=== PATIENT | female | born 2000 | race Caucasian/White ===

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

== ENCOUNTER 2022-04-08 17:38 | Emergency (ER) | payer MEDICAID ==
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
[2022-04-08 20:05] LABS: Group A Strep NOT DETECTED (NEGATIVE)
[2022-04-08 20:12] VITALS: BP 119/64; PULSE 100
[2022-04-08 20:13] VITALS: O2SAT 99
[2022-04-08 20:17] LABS: INFLUENZA B NEGATIVE (NEGATIVE); RESPIRATORY SYNCTIAL VIRUS NEGATIVE (Negative); SARS-CoV-2 Xpert Express NEGATIVE (NEGATIVE)
[2022-04-08] MEDS ORDERED: Robitussin-Dm Syrup PO ONE (20:44)
[2022-04-08] MEDS ORDERED: Robitussin-Dm Syrup ONE (20:48)
[2022-04-08 20:50] LABS: INFLUENZA A POSITIVE (NEGATIVE)
== END 2022-04-08 21:00 | disposition home or self-care (01) ==
LOC: ED 17:38
DX: O99.512 Diseases of the respiratory system complicating pregnancy, second trimester (principal); Z3A.16 16 weeks gestation of pregnancy; J10.1 Influenza due to other identified influenza virus with other respiratory manifestations; R50.9 Fever, unspecified; R05.1 Acute cough; R51.9 Headache, unspecified; Z72.0 Tobacco use
CPT/HCPCS: 0241U; 87651; 99282; A9270-GY

== ENCOUNTER 2022-08-31 14:57 | Observation (INO) | payer MEDICAID, OTHER ==
[2022-08-31 16:11] LABS: ADD URINE CULTURE? NO (NO); Appearance Clear (Clear); Bacteria None Seen /HPF (None Seen); Bilirubin Negative (Negative); Blood Negative (Negative); Epithelial Cells None Seen /HPF (None Seen); Glucose, Urine Negative (Negative); Hyaline Casts NONE SEEN /LPF (0-2); Ketones Negative (Negative); Leukocyte Esterase Negative (Negative); Nitrite Negative (Negative); Ph 6.5 (4.6-8.0); Protein,Urine Dip Negative (Negative); RBC 0-2 /HPF (0-5); Specific Gravity 1.015 (1.005-1.030); Urobilinogen 0.2 mg/dL (0.2); WBC 0-2 /HPF (0-5)
[2022-08-31 16:14] VITALS: BP 113/72; PULSE 88
[2022-08-31 16:21] LABS: Amphetamine,Urine NEGATIVE (NEGATIVE); Barbiturate,Urine NEGATIVE (NEGATIVE); Benzodiazepine,Urine NEGATIVE (NEGATIVE); Cocaine,Urine NEGATIVE (NEGATIVE); Methadone,Urine NEGATIVE (NEGATIVE); Opiate,Urine NEGATIVE (NEGATIVE); PCP,Urine NEGATIVE (NEGATIVE); THC,Urine NEGATIVE (NEGATIVE)
--- NOTE | 2022-08-31 20:02 | XRAY ---
Indication: Decreased movement. Ultrasound biophysical profile study performed. Comparison: None Single intrauterine currently in cephalic presentation. heart rate 149 BPM. Four-quadrant ARTURO is 11.6 cm. 2 points given for breathing, movements, tone, and amniotic fluid volume. Impression: Total biophysical profile score is 8 out of 8.
== END 2022-08-31 18:05 | disposition home or self-care (01) ==
LOC: OB 14:57
PROVIDERS: ADMIT Obstetrics & Gynecology; ATTEND Obstetrics & Gynecology
DX: Z34.83 Encounter for supervision of other normal pregnancy, third trimester (principal); Z3A.36 36 weeks gestation of pregnancy
CPT/HCPCS: 36415; 76819; 80307; 81001; 84112; G0378

== ENCOUNTER 2022-09-21 07:26 | Inpatient (IN) | payer OTHER ==
[2022-09-21] MEDS ORDERED: TYLENOL EXTRA STRENGTH 500 MG PO PRN (15:00)
[2022-09-21] MEDS ORDERED: Lactated Ringers 1,000 ML IV ONE (15:00)
[2022-09-21] MEDS ORDERED: Zofran 4 MG/2 ML VIAL IV PRN (15:00)
[2022-09-21] MEDS ORDERED: Nubain 10 MG/ML IV PRN ×2 (15:00→21:00)
[2022-09-21] MEDS ORDERED: Lactated Ringers 1,000 ML IV SCH (15:00)
[2022-09-21] MEDS ORDERED: Ephedrine Sulfate 50 MG/ML IV PRN (15:00)
[2022-09-21] MEDS ORDERED: FENTANYL 2 MCG-BUPIV 0.125%-NS 250 ML Epidur 250 ML EPIDURAL SCH (15:00)
[2022-09-21 15:30] LABS: Absolute Neutrophil Ct (ANC) 6.28 x10^3/uL (1.4-6.9); BASOPHIL % 0.2 % (0.0-0.4); Basophil (Absolute #) 0.02 x10^3/uL (0-0.4); Eosinophil % 0.6 % (0.00-5.0); Eosinophil (Absolute #) 0.05 x10^3/uL (0-0.5); Hematocrit 36.9 % (35-47); Hemoglobin 12.1 g/dL (12.0-16.0); IMMATURE GRAN # 0.05 x10^3u/L (0.00-0.03); IMMATURE GRAN % 0.6 % (0.00-0.4); Lymphocyte (Absolute #) 1.57 x10^3/uL (1.0-4.6); Lymphocytes % 18.3 % (24.0-44.0); Mean Cell Volume 91.1 fL (78-100); Mean Corpuscular Hemoglobin 29.9 pg (26-32); Mean Corpuscular Hgb Concent. 32.8 g/dL (32-36); Mean Platelet Volume 12.1 fL (7.5-11.0); Monocyte (Absolute #) 0.62 x10^3/uL (0.0-1.3); Monocytes % 7.2 % (0.0-12.0); Neutrophil % 73.1 % (36.0-66.0); Platelet Count 161 x10^3/uL (150-450); Red Blood Count 4.05 x10^6/uL (4.1-5.4); Red Cell Distribution Width 13.7 % (11.5-14.0); White Blood Count 8.6 x10^3/uL (4.0-10.5)
[2022-09-21 15:47] LABS: Amphetamine,Urine NEGATIVE (NEGATIVE); Barbiturate,Urine NEGATIVE (NEGATIVE); Benzodiazepine,Urine NEGATIVE (NEGATIVE); Cocaine,Urine NEGATIVE (NEGATIVE); Methadone,Urine NEGATIVE (NEGATIVE); Opiate,Urine NEGATIVE (NEGATIVE); PCP,Urine NEGATIVE (NEGATIVE); THC,Urine NEGATIVE (NEGATIVE)
[2022-09-21] MEDS: CYTOTEC PO SCH ×5 (15:55→23:52)
[2022-09-21 16:08] LABS: ABO TYPING O; Antibody Screen NEGATIVE (NEGATIVE); RH TYPING POSITIVE
[2022-09-21] MEDS ORDERED: Ambien 5 MG Tablet PO ONE (22:00)
[2022-09-22] MEDS: Lactated Ringers 1,000 ML IV SCH ×4 (01:22→11:13)
[2022-09-22] MEDS: CYTOTEC PO SCH ×2 (01:53→03:55)
[2022-09-22] MEDS ORDERED: PITOCIN 30 UNITS/ LR 500 ML 30 UNITS/500 ML PLAST..BAG IV SCH ×2 (06:00→08:00)
[2022-09-22] MEDS ORDERED: Sodium Chloride 0.9% 1000 ML 1,000 ML IV ONE (07:00)
[2022-09-22] MEDS ORDERED: XYLOCAINE 1% HCL 20 ML MDV IJ PRN (08:00)
[2022-09-22] MEDS ORDERED: DEXMEDETOMIDINE 80 MCG/20ML-NS IV ONE (08:38)
[2022-09-22] MEDS ORDERED: XYLOCAINE 2%/Epi 1:200000 20ML VIAL MPF ONE (08:38)
[2022-09-22] MEDS ORDERED: FERREX 150 PO SCH (10:00)
[2022-09-22] MEDS ORDERED: CORTISONE 1% CREAM TP PRN (12:00)
[2022-09-22] MEDS ORDERED: LANSINOH 40 GM TOP PRN (12:00)
[2022-09-22] MEDS ORDERED: Dermoplast Spray TP PRN (12:00)
[2022-09-22] MEDS ORDERED: TUCKS TP PRN (12:00)
[2022-09-22] MEDS ORDERED: Mylicon 80MG PO PRN (12:00)
[2022-09-22] MEDS ORDERED: Adacel Vial IM ONE (12:00)
[2022-09-22 12:04] LABS: HBsAg Screen Negative (Negative)
[2022-09-22] MEDS: MOTRIN 400 MG PO PRN (19:05)
[2022-09-22] MEDS: Docusate Sodium 100 MG PO SCH (23:37)
[2022-09-23 05:14] LABS: Absolute Neutrophil Ct (ANC) 10.62 x10^3/uL (1.4-6.9); BASOPHIL % 0.2 % (0.0-0.4); Basophil (Absolute #) 0.03 x10^3/uL (0-0.4); Eosinophil % 0.5 % (0.00-5.0); Eosinophil (Absolute #) 0.07 x10^3/uL (0-0.5); Hematocrit 33.3 % (35-47); Hemoglobin 11.1 g/dL (12.0-16.0); IMMATURE GRAN # 0.07 x10^3u/L (0.00-0.03); IMMATURE GRAN % 0.5 % (0.00-0.4); Lymphocyte (Absolute #) 1.81 x10^3/uL (1.0-4.6); Lymphocytes % 13.5 % (24.0-44.0); Mean Cell Volume 90.2 fL (78-100); Mean Corpuscular Hemoglobin 30.1 pg (26-32); Mean Corpuscular Hgb Concent. 33.3 g/dL (32-36); Mean Platelet Volume 11.9 fL (7.5-11.0); Monocyte (Absolute #) 0.83 x10^3/uL (0.0-1.3); Monocytes % 6.2 % (0.0-12.0); Neutrophil % 79.1 % (36.0-66.0); Platelet Count 134 x10^3/uL (150-450); Red Blood Count 3.69 x10^6/uL (4.1-5.4); Red Cell Distribution Width 13.9 % (11.5-14.0); White Blood Count 13.4 x10^3/uL (4.0-10.5)
[2022-09-23] MEDS: Docusate Sodium 100 MG PO SCH ×2 (07:50→22:20)
--- NOTE | 2022-09-23 09:37 | PCM.NOTE ---
Date and Time: 09/23/22934 Subjective Assessment: ppd 1 sp pt resting in bed and doing well ambulating and tolerating diet. vss afebrile abd; soft uterus; firm lochia; mild a/p sp ppd 1 dc home tomorrow fu office in 3 wks. OBJECTIVE DATA Vital Signs: Vital Signs - 24 hr Temp Pulse Resp BP BP Pulse Ox 09/23/22 07:30 97.8 F 65 20 116/78 100 09/23/22 02:11 96.9 F 68 18 102/57 98 09/22/22 20:00 98.6 F 88 97 H 112/62 100 09/22/22 15:50 99.5 F 75 18 117/62 100 09/22/22 15:00 99.5 F 77 18 130/79 100 09/22/22 14:00 98.5 F 72 20 118/70 100 09/22/22 13:15 97.8 F 70 20 118/70 99 09/22/22 12:45 98.0 F 70 18 116/75 98 09/22/22 12:30 98.5 F 65 18 120/75 98 09/22/22 12:15 98.5 F 75 20 115/76 97 09/22/22 12:00 98.0 F 76 18 114/68 98 09/22/22 11:45 98.0 F 83 18 107/74 98 09/22/22 11:24 90 20 113/73 09/22/22 11:15 68 20 117/72 09/22/22 11:00 76 20 112/62 09/22/22 10:45 75 20 114/56 09/22/22 10:30 97.6 F 81 20 126/62 98 09/22/22 10:15 71 18 113/59 99 09/22/22 10:00 61 18 108/66 96 09/22/22 09:45 64 18 111/59 98 Pain Assessment - Last Documented Pain Intensity [Lower Anterior 3 ] Pain Intensity 3 Pain Scale Used 0-10 Pain Scale Intake and Output: Intake & Output 09/20/22 09/21/22 09/22/22 09/23/22 11:59 11:59 11:59 11:59 Intake Total 5874 500 Output Total 500 Balance 5874 0 Weight 76.657 kg Lab Results: Lab Results-Last 24 Hours 09/21/22 09/23/22 Range/Units 15:20 05:07 WBC 13.4 H (4.0-10.5) x10^3/uL RBC 3.69 L (4.1-5.4) x10^6/uL Hgb 11.1 L (12.0-16.0) g/dL Hct 33.3 L (35-47) % MCV 90.2 (78-100) fL MCH 30.1 (26-32) pg MCHC 33.3 (32-36) g/dL RDW 13.9 (11.5-14.0) % Plt Count 134 L (150-450) x10^3/uL MPV 11.9 H (7.5-11.0) fL Gran % 79.1 H (36.0-66.0) % Immature Gran % (Auto) 0.5 H (0.00-0.4) % Nucleat RBC Rel Count 0.0 (0.00-0.1) % Eos # (Auto) 0.07 (0-0.5) x10^3/uL Immature Gran # (Auto) 0.07 H (0.00-0.03) x10^3u/L Absolute Lymphs (auto) 1.81 (1.0-4.6) x10^3/uL Absolute Monos (auto) 0.83 (0.0-1.3) x10^3/uL Absolute Nucleated RBC 0.00 (0.00-0.01) x10^3u/L Lymphocytes % 13.5 L (24.0-44.0) % Monocytes % 6.2 (0.0-12.0) % Eosinophils % 0.5 (0.00-5.0) % Basophils % 0.2 (0.0-0.4) % Absolute Granulocytes 10.62 H (1.4-6.9) x10^3/uL Basophils # 0.03 (0-0.4) x10^3/uL Hep Bs Antigen Negative (Negative) Multi-Disciplinary Progress Notes: Multi-Disciplinary Progress Notes 09/22/22 11:45 Respiratory Note by Zully Carney Called to delivery baby came out lethargic. Dried and stimulated for 30 seconds. Baby cried a few times and then was becoming more lethargic. Placed on cpap at 5cm 21% for 30 seconds and then changed to PPV for about 1.5 min at 30% oxygen saturation increased to 88% HR in the 150's. Baby began to pink up and breath more on his own. Changed back to CPAP for another 30seconds saturation increased to 92% and RR increased to 48. Took off of cpap onto room air and saturation were 92 and increasing to 95%. Patient monitored for another 5 minutes before nurse gave over to mom for skin to skin. AT that time baby pink, with HR 162, RR 60, and Saturation were 96% on room air. Initialized on 09/22/22 11:45 - END OF NOTE Assessment/Plan (1) Vaginal delivery Current Visit: Yes Status: Acute Code(s): O80 - ENCOUNTER FOR FULL-TERM UNCOMPLICATED DELIVERY
--- NOTE | 2022-09-23 09:40 | PCM.DS ---
Discharge Summary Date of Admission: 09/22/22 07:41 Admitting Physician: ORQUIDEA NICHOLE DO Consults: Consults on Case 09/21/22 15:00 Notify Anesthesia Provider PRN 09/21/22 18:38 Navigation ONCE Primary Care Provider: SONIDO LAYNE Allergies Allergies No Known Drug Allergies Allergy (Verified 09/21/22 16:48) Hospital Summary - Hospital Course Hospital Course: pt admitted on september 21 for induction at 39 2/7 wks gestation with oral cytotec. pt received her cytotec followed by getting an epidural and subsequent pitocin use and delivered live baby boy via without complication at 1124 am on september 22. during period did well and was able to ambulate and tolerate diet. stable hgb at 11 and at this time is stable for discharge with fu in office in 3 wks for care. all questions answered to her satisfaction. - Vitals & Intake/Output Vital Signs: Vital Signs Temperature 97.8 F 09/23/22 07:30 Pulse Rate 65 09/23/22 07:30 Respiratory Rate 20 09/23/22 07:30 Blood Pressure 116/78 09/23/22 07:30 O2 Sat by Pulse Oximetry 100 09/23/22 07:30 Intake & Output: Intake & Output 09/20/22 09/21/22 09/22/22 09/23/22 11:59 11:59 11:59 11:59 Intake Total 5874 500 Output Total 500 Balance 5874 0 Weight 76.657 kg - Lab Result Diagrams: 09/23/22 05:07 Lab Results-Last 24 Hrs: Lab Results-Last 24 Hours 09/21/22 09/23/22 Range/Units 15:20 05:07 WBC 13.4 H (4.0-10.5) x10^3/uL RBC 3.69 L (4.1-5.4) x10^6/uL Hgb 11.1 L (12.0-16.0) g/dL Hct 33.3 L (35-47) % MCV 90.2 (78-100) fL MCH 30.1 (26-32) pg MCHC 33.3 (32-36) g/dL RDW 13.9 (11.5-14.0) % Plt Count 134 L (150-450) x10^3/uL MPV 11.9 H (7.5-11.0) fL Gran % 79.1 H (36.0-66.0) % Immature Gran % (Auto) 0.5 H (0.00-0.4) % Nucleat RBC Rel Count 0.0 (0.00-0.1) % Eos # (Auto) 0.07 (0-0.5) x10^3/uL Immature Gran # (Auto) 0.07 H (0.00-0.03) x10^3u/L Absolute Lymphs (auto) 1.81 (1.0-4.6) x10^3/uL Absolute Monos (auto) 0.83 (0.0-1.3) x10^3/uL Absolute Nucleated RBC 0.00 (0.00-0.01) x10^3u/L Lymphocytes % 13.5 L (24.0-44.0) % Monocytes % 6.2 (0.0-12.0) % Eosinophils % 0.5 (0.00-5.0) % Basophils % 0.2 (0.0-0.4) % Absolute Granulocytes 10.62 H (1.4-6.9) x10^3/uL Basophils # 0.03 (0-0.4) x10^3/uL Hep Bs Antigen Negative (Negative) Micro Results-Entire Visit: Microbiology 09/22/22 09:48 Urine Culture - Preliminary Catherized NO GROWTH TO DATE - Procedures and Test Procedures and Tests throughout Hospitalization: Therapy Orders & Screens 09/22/22 11:56 Standby ROUTINE Comment: Diagnosis: IUP Final Diagnosis/Problem List - Final Discharge Diagnosis/Problem (1) Vaginal delivery Current Visit: Yes Status: Acute Code(s): O80 - ENCOUNTER FOR FULL-TERM UNCOMPLICATED DELIVERY - Discharge Disposition: Home, Self-Care Condition: Stable Follow up with: SONIDO LAYNE [Primary Care Provider] - ORQUIDEA NCIHOLE DO [ACTIVE STAFF] - 3 weeks
[2022-09-23] MEDS: MOTRIN 400 MG PO PRN (15:56)
[2022-09-23 19:50] VITALS: O2SAT 99
[2022-09-24] MEDS: MOTRIN 400 MG PO PRN (05:20)
[2022-09-24 14:20] VITALS: BP 115/60; PULSE 77
== END 2022-09-24 12:15 | disposition home or self-care (01) | DRG 807 ==
LOC: OB 07:41 → OBSVTOIN 09-22 07:41
PROVIDERS: ADMIT Obstetrics & Gynecology; ATTEND Obstetrics & Gynecology
PROC: 10E0XZZ Delivery of Products of Conception, External Approach (ICD-10-PCS; principal; 2022-09-22)
PROC: 0HQ9XZZ Repair Perineum Skin, External Approach (ICD-10-PCS; 2022-09-22)
DX: O69.81X0 Labor and delivery complicated by cord around neck, without compression, not applicable or unspecified (principal); Z37.0 Single live birth; O70.0 First degree perineal laceration during delivery; Z3A.39 39 weeks gestation of pregnancy; Z20.828 Contact with and (suspected) exposure to other viral communicable diseases
CPT/HCPCS: 36415; 59409; 80307; 85025; 86850; 86900; 86901; 87086; 87340; 88720; 90715; 94799; G0010; G0378; J2300; J2405; J2590; A9270-GY

== ENCOUNTER 2023-02-26 13:05 | Emergency (ER) | payer OTHER ==
[2023-02-26 13:18] VITALS: RESP 18; TEMP 97.2; O2SAT 97
--- NOTE | 2023-02-26 13:44 | ERPHSYRPT ---
- History of Present Illness Time Seen by Provider: 02/26/23 13:07 Source: patient Exam Limitations: no limitations Patient Subjective Stated Complaint: PT HERE FOR AN ABCESS TO RIGTH AXILLA FOR 2 WEEKS NOW GETTING Triage Nursing Assessment: PT ALERT, WALKED IN, RESP EASY, SKIN W/D/P..HAS SWELLING AND REDNESS TO RIGHT AXILLA , NO DRAINAGE Physician History: 22 years old female presented in the ER with chief complaint of right axilla swelling gradually worsening for the last 2 weeks. Patient reports it was initially almost pea-sized and gradually increase to the size of a nickel with dull aching to sharp pain mild to moderate with palpation. She has been applying warm compresses with no discharge. No fever or chills reported. No history of MRSA. Has 3 x 2 cm area of swelling in the right axilla firm consistency, negative fluctuation, adherent to skin. No discharge. I do not think patient needs I&D. I will start her on Bactrim and ibuprofen, recommended continue warm compresses on outpatient follow-up. Discussed signs symptoms of worsening needing return to ER which she seems understanding. Stable for discharge. Allergies/Adverse Reactions: No Known Drug Allergies Allergy (Verified 02/26/23 13:17) Hx Tetanus, Diphtheria Vaccination/Date Given: No Hx Influenza Vaccination/Date Given: No Hx Pneumococcal Vaccination/Date Given: No Immunizations Up to Date: Yes Travel Risk - International Travel Have you traveled outside of the country in past 3 weeks: No - Coronavirus Screening Are you exhibiting any of the following symptoms?: No - Vaccine Status Have you recieved a Covid-19 vaccination: Yes [employer]: [employer] - Vaccination Dates Date of 2cond Vaccination (if applicable): 2020 - Review of Systems Constitutional: No Symptoms Ears, Nose, & Throat: No Symptoms Respiratory: No Symptoms Cardiac: No Symptoms Genitourinary Symptoms: No Symptoms Skin: Cellulitis, Induration Neurological: No Symptoms Psychological: No Symptoms Endocrine: No Symptoms - Past Medical History Pertinent Past Medical History: No Neurological History: No Pertinent History ENT History: No Pertinent History Cardiac History: No Pertinent History Respiratory History: No Pertinent History Endocrine Medical History: No Pertinent History Musculoskeletal History: No Pertinent History GI Medical History: No Pertinent History History: No Pertinent History Psycho-Social History: Bipolar Female Reproductive Disorders: No Pertinent History Other Medical History: Bipolar and PTSD - Past Surgical History Past Surgical History: No Neuro Surgical History: No Pertinent History Cardiac: No Pertinent History Respiratory: No Pertinent History Gastrointestinal: No Pertinent History Genitourinary: No Pertinent History Musculoskeletal: No Pertinent History Female Surgical History: Dilation & Curettage Other Surgical History: WTE - Social History Smoking Status: Current some day smoker How long have you smoked: years Exposure to second hand smoke: No Drug Use: none Patient Lives Alone: No - Female History Hx Last Menstrual Period: WEEK AGO Hx Now: No - Nursing Vital Signs Nursing Vital Signs: Initial Vital Signs Temperature 97.2 F 02/26/23 13:17 Pulse Rate 82 02/26/23 13:17 Respiratory Rate 18 02/26/23 13:17 Blood Pressure 129/80 02/26/23 13:17 O2 Sat by Pulse Oximetry 97 02/26/23 13:17 Pain Scale Pain Intensity 5 - Physical Exam General Appearance: no apparent distress, alert Eye Exam: PERRL/EOMI Neck Exam: normal inspection, non-tender, supple, full range of motion Respiratory Exam: normal breath sounds, lungs clear Cardiovascular Exam: regular rate/rhythm, normal heart sounds Back Exam: normal inspection Extremity Exam: normal inspection, normal range of motion Neurologic Exam: alert, oriented x 3, 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 Mildly increased temperature. No discharge, negative fluctuation.) SpO2 Interpretation: normal SpO2: 97 O2 Delivery: Room Air - Progress Progress: unchanged Progress Note: 02/26/23 13:52 22 years old female presented in the ER with chief complaint of right axilla swelling gradually worsening for the last 2 weeks. Patient reports it was initially almost pea-sized and gradually increase to the size of a nickel with dull aching to sharp pain mild to moderate with palpation. She has been applying warm compresses with no discharge. No fever or chills reported. No history of MRSA. Has 3 x 2 cm area of swelling in the right axilla firm consistency, negative fluctuation, adherent to skin. No discharge. I do not think patient needs I&D. I will start her on Bactrim and ibuprofen, recommended continue warm compresses on outpatient follow-up. Discussed signs symptoms of worsening needing return to ER which she seems understanding. Stable for discharge. Counseled pt/family regarding: diagnosis, need for follow-up Medical Desision Making - Risk of complications The pt has a mod risk of morbidity or mortality based on: Need for prescription drug management - Departure Departure Disposition: Home Clinical Impression: Abscess of axilla, right Condition: Stable Critical Care Time: No Referrals: SONIDO LAYNE [Primary Care Provider] - Follow up with PCP 2 days Instructions: MRSA (DC) Additional Instructions: Take Tylenol/ibuprofen as needed. Intermittent warm compress application. Follow-up with primary care for reevaluation. Return to ER for increasing pain swelling redness, discharge, fever chills etc. Prescriptions: Ibuprofen 600 mg PO Q6HPRN PRN 10 Days #20 tablet PRN Reason: Pain Smz/Tmp Ds Tablet [Bactrim Ds Tablet] 1 udtab PO BID #14 tablet
[2023-02-26 14:05] VITALS: BP 121/87; PULSE 70
[2023-02-26] MEDS ORDERED: KEFLEX 500 MG ONE (14:42)
== END 2023-02-26 14:12 | disposition home or self-care (01) ==
LOC: ED 13:05
DX: L02.411 Cutaneous abscess of right axilla (principal); Z72.0 Tobacco use
CPT/HCPCS: 99281; A9270-GY